=== PATIENT | female | born 1950 | race African-American/Black ===

== ENCOUNTER 2023-12-13 19:45 | Emergency (ER) | payer MEDICARE ==
[2023-12-13 20:09] LABS: #Basophils 0.1 thou/uL (0.0-0.2); #Eosinophils 0.1 thou/uL (0.0-0.7); #Lymphocytes 2.1 thou/uL (1.20-3.40); #Neutrophils 7.2 thou/uL (1.40-6.50); %Basophils 1.1 % (0.0-1.0); %Eosinophils 0.7 % (0.0-10.0); %Lymphocytes 20.1 % (21.0-51.0); %Monocytes 9.3 % (0.0-10.0); %Neutrophils 68.8 % (42.0-75.0); Hematocrit 32.7 % (36.0-47.0); Hemoglobin 10.8 g/dL (12.0-16.0); Mean Corpuscular HGB CONC 32.9 g/dL (32.0-36.0); Mean Corpuscular Hemoglobin 29.8 pg (27.0-31.0); Mean Corpuscular Volume 90.7 fl (78.0-98.0); Mean Platelet Volume 7.3 fL (7.4-10.4); Platelet Count 300 10x3/uL (130-400); RBC Distribution Width 13.2 % (11.5-14.5); Red Blood Cell (RBC) Count 3.61 mill/uL (4.20-5.40); White Blood Cell (WBC) Count 10.4 10x3/uL (4.8-10.8)
[2023-12-13 20:30] LABS: ALT (SGPT) 12 U/L (8-55); AST (SGOT) 15 U/L (5-34); Albumin 4.1 g/dL (3.4-4.8); Alkaline Phosphatase 65 U/L (40-110); Anion Gap 19 mmol/L (10-20); BUN (Urea Nitrogen) 13 mg/dL (9.8-20.1); Bilirubin, Total 0.6 mg/dL (0.2-1.2); Calc. Creatinine Clearance 0 mL/min (70-130); Calcium 9.9 mg/dL (7.8-10.44); Carbon Dioxide 21 mmol/L (23-31); Chloride 99 mmol/L (98-107); Estimated GFR 49; Globulin 3.3 g/dL (2.4-3.5); Glucose 149 mg/dL (83-110); Magnesium 1.8 mg/dL (1.6-2.6); Potassium 3.5 mmol/L (3.5-5.1); Protein, Total 7.4 g/dL (5.8-8.1); Sodium 135 mmol/L (136-145)
[2023-12-13 20:31] LABS: Troponin I Less than 0.010 ng/mL (< 0.028)
[2023-12-13 23:18] LABS: Troponin I Less than 0.010 ng/mL (< 0.028)
== END 2023-12-13 23:45 | disposition home or self-care (01) ==
LOC: MADERS 19:45
DX: R06.02 Shortness of breath (principal); D64.9 Anemia, unspecified; I10 Essential (primary) hypertension; Z79.899 Other long term (current) drug therapy
CPT/HCPCS: 71045; 80053; 83735; 83880; 84443; 84484; 85025; 93005; 94760

== ENCOUNTER 2023-12-20 00:19 | Emergency (ER) | payer MEDICARE ==
[2023-12-20 00:48] LABS: #Basophils 0.1 thou/uL (0.0-0.2); #Eosinophils 0.3 thou/uL (0.0-0.7); #Lymphocytes 2.7 thou/uL (1.20-3.40); #Monocytes 0.6 thou/uL (0.11-0.59); #Neutrophils 4.3 thou/uL (1.40-6.50); %Basophils 1.4 % (0.0-1.0); %Eosinophils 3.8 % (0.0-10.0); %Lymphocytes 34.3 % (21.0-51.0); %Monocytes 7.2 % (0.0-10.0); %Neutrophils 53.3 % (42.0-75.0); Hemoglobin 9.9 g/dL (12.0-16.0); Mean Corpuscular HGB CONC 31.8 g/dL (32.0-36.0); Mean Corpuscular Hemoglobin 29.2 pg (27.0-31.0); Mean Corpuscular Volume 91.7 fl (78.0-98.0); Mean Platelet Volume 6.7 fL (7.4-10.4); Platelet Count 322 10x3/uL (130-400); RBC Distribution Width 12.9 % (11.5-14.5); Red Blood Cell (RBC) Count 3.38 mill/uL (4.20-5.40)
[2023-12-20 01:03] LABS: ALT (SGPT) 8 U/L (8-55); AST (SGOT) 16 U/L (5-34); Albumin 3.6 g/dL (3.4-4.8); Alkaline Phosphatase 63 U/L (40-110); Anion Gap 15 mmol/L (10-20); BUN (Urea Nitrogen) 13 mg/dL (9.8-20.1); Bilirubin, Total 0.3 mg/dL (0.2-1.2); Calc. Creatinine Clearance 0 mL/min (70-130); Calcium 9.5 mg/dL (7.8-10.44); Carbon Dioxide 23 mmol/L (23-31); Chloride 99 mmol/L (98-107); Estimated GFR 49; Globulin 3.4 g/dL (2.4-3.5); Glucose 123 mg/dL (83-110); Potassium 3.3 mmol/L (3.5-5.1); Sodium 134 mmol/L (136-145)
[2023-12-20 01:06] LABS: Troponin I Less than 0.010 ng/mL (< 0.028)
[2023-12-20] MEDS ORDERED: Furosemide 20 MG (2 mL) VIAL ONE (01:14)
[2023-12-20] MEDS ORDERED: Potassium Chloride 20 MEQ TAB ONE (01:14)
[2023-12-20 01:26] LABS: Magnesium 1.7 mg/dL (1.6-2.6)
[2023-12-20] MEDS ORDERED: Magnesium 2 GM/50 ML BAG (IN WATER) ONE (01:32)
[2023-12-20] MEDS ORDERED: Levalbuterol 1.25 MG/3 ML NEB ONE (01:56)
[2023-12-20] MEDS ORDERED: Iopamidol 370 76% 100 ML VIAL ONE (09:00)
== END 2023-12-20 03:55 | disposition short-term general hospital (02) ==
LOC: MADERS 00:19
DX: D64.9 Anemia, unspecified (principal); E87.6 Hypokalemia; R00.0 Tachycardia, unspecified; I45.81 Long QT syndrome; I11.0 Hypertensive heart disease with heart failure; I50.9 Heart failure, unspecified; E78.5 Hyperlipidemia, unspecified; R73.03 Prediabetes; Z79.899 Other long term (current) drug therapy
CPT/HCPCS: 71045; 71275; 83735; 83880; 84484; 93005; J1940; J3475; J7612; Q9967; 80053; 84443; 85025; 96365; 96375